=== PATIENT | male | born 1990 | race Caucasian/White ===

== ENCOUNTER 2022-04-15 00:22 | Observation (INO) ==
--- NOTE | 2022-04-15 00:48 | Emergency Department Note ---
Impression & Plan Rectal foreign body, Laceration of anus with foreign body ED Provider Note Name: CELY ARMANDO Age: 32 Sex: M Arrives Via: Walk-In Informant: Patient ED Provider: Antonio Mercado MD Chief Complaint: Foreign body in rectum Impression: As per impressions above Medical Decision Makin-year-old healthy male without significant past medical history arrives for evaluation after inserting an deodorant bottle of his rectum and then when he removed it the cap remained. The patient did sustain mild rectal laceration from this but is no longer bleeding on my evaluation. During digital rectal exam I am able to do just partially feel the edge of the cap high up in the r ectal vault. Discussed with gastroenterology who advised I discussed the case with general surgery. Discussed the case with Dr. White general surgery who plans to take patient to the OR for rectal foreign body removal. Triage/Nursing Notes reviewed by Me Differentials:Foreign body, laceration, obstruction, other pathologies considered Vital Signs: reviewed and remarkable for mildly hypertensive Interventions: Mefoxin 2 g IV Imaging:As per my interpretation: 1 view KUB moderate amount of air within the rectal vault no evidence of obstruction or opaque foreign body Consults:Dr Jameson of GI advised consulting Gen Surg Dr White of Gen Surg consulted and will take patient to the OR for management. Plan: Disposition:Transfer to operating room Condition: Good History of Present Illness:32-year-old gentleman arrives for evaluation of foreign body in rectum. Patient notes he had self inserted a deodorant bottle in his rectum about 30 minutes prior to arrival. When removing this he realized the cap had been dislodged. He attempted multiple times to get it out but started noticing some bleeding. Denies any other foreign bodies. Denies any metal. Denies history of bleeding issues. States this was not an assault. Past History:Denies past medical history. [employer] from [place] Home Medications:none Allergies:nkda Vitals:Blood Pressure: 162/100, Pulse 101, RR 18, T 36.6C, O2 95% on RA Physical Exam: GENERAL: Patient is anxious appearing and in minimal distress. EYES: No scleral icterus, unremarkable pupils. Abdominal: Soft nontender no peritonitis. RECTAL: Small mucosal tear posterior left rectum no active bleeding. Rectal exam scant amount of stool noted in rectal vault. Foreign body can be just partially palpated with tip of finger during digital rectal exam EXTREMITIES: Normal motion all extremities, no cyanosis, no edema. NEUROLOGIC: Alert and oriented, no focal neurologic deficit SKIN: No rash, no jaundice, no diaphoresis. PSYCH: Appropriate anxious GCS: 15 ED Course: Times/Reassessments: Patient anxious but stable Antonio Mercado MD Past Med/Surg History Medical History (Updated 04/15/22 @ 02:30 by Mikey Rosenberg MD) Encounter for pre-operative examination Rectal foreign body Social History Smoking Status: Never smoker Preferred Language: Stateless Feels Safe at Home: Yes Results & Data (ED) Vital Signs Vital Signs - 24 hr 04/15/22 00:25 04/15/22 02:09 Temperature 36.6 C Temperature Source Temporal Artery Scan Pulse Rate 101 H Pulse Rate [Finger] 80 Pulse Rhythm [Finger] Regular Pulse Strength [Finger] Normal Respiratory Rate 18 16 Respiratory Effort / Characteristics Non-Labored Non-Labored Respiratory Depth Normal Normal Respiratory Pattern Regular Blood Pressure 162/100 H Blood Pressure [Right Arm] 145/94 H Blood Pressure Mean 120 Blood Pressure Mean [Right Arm] 111 Pulse Oximetry 95 98 Oxygen Delivery Method Room Air Room Air Sepsis Recent Fever Within 48 Hours No Sepsis New/Unexplained Change in Mental Status N/A Sepsis Action Taken by Nursing No Action Required Laboratory Data 04/15/22 02:00 04/15/22 02:00 Lab Results 04/15/22 04/15/22 Range/Units 01:50 02:00 WBC 7.71 (4.8-10.8) K/ul RBC 4.88 (4.70-6.10) M/uL Hgb 13.8 L (14.0-18.0) g/dl Hct 40.6 L (42.0-52.0) % MCV 83.2 (80.0-100.0) fL MCH 28.3 (25.0-34.0) pg MCHC 34.0 (32.0-36.0) g/dL RDW Std Deviation 36.5 (36.4-46.3) fL RDW Coeff of Hermila 11.9 (11.5-14.5) % Plt Count 191 (130-400) K/uL MPV 12.4 (9.4-12.4) fL Immature Gran % (Auto) 0.3 % Neut % (Auto) 74.1 % Lymph % (Auto) 17.0 % [place] % (Auto) 6.9 % Eos % (Auto) 1.3 % Baso % (Auto) 0.4 % Neut # (Auto) 5.72 (1.40-6.50) K/uL Lymph # (Auto) 1.31 (1.2-3.4) K/uL [place] # (Auto) 0.53 (0.11-0.59) K/uL Eos # (Auto) 0.10 (0-0.50) K/uL Baso # (Auto) 0.03 (0-0.2) K/uL Immature Gran # (Auto) 0.02 (0.01-0.20) K/uL SARS-CoV-2, RNA, NAAT NEGATIVE (NEGATIVE) Discharge Plan Visit Data Chief Complaint: Foreign Body Stated Complaint: OBJECT STUCK IN RECTUM ED Provider: Antonio Mercado Discharge Problem: Rectal foreign body, Laceration of anus with foreign body Forms Stand Alone Forms: [facility] Referrals Referrals: PCP,NO [Primary Care Provider] - Laceration of anus with foreign body Qualifiers: Encounter type: initial encounter Qualified Code(s): S31.832A - Laceration with foreign body of anus, initial encounter
[2022-04-15] MEDS ORDERED: cefOXitin 2,000 MG/60 ML BAG IV STA (01:47)
--- NOTE | 2022-04-15 01:55 | History & Physical Report ---
Date of Service April 15, 2022 Assessment & Plan (1) Rectal foreign body: Plan: Patient with rectal foreign body which is the cap of a deodorant bottle I have discussed exam under anesthesia with the patient with removal of the cap It may be that I cannot remove the foreign body and there is a chance the patient would have to be transferred to a tertiary care center Encounter type: initial encounter Qualified Code(s): T18.5XXA - Foreign body in anus and rectum, initial encounter History of Present Illness Primary Care Provider: NO PCP 32-year-old male with a rectal foreign body Apparently placed a deodorant bottle into his anorectal area and when he pulled it out the cap came off The ER physician was unable to retrieve it using his digit but felt that it was just above his finger Past Med/Surg History Social History Smoking Status: Never smoker Preferred Language: Albanian Feels Safe at Home: Yes Review of Systems All systems reviewed & are unremarkable except as noted in HPI & below Physical Exam Constitutional: well developed; no acute distress Eyes: + anicteric sclerae Respiratory: normal respiratory effort; no respiratory distress Cardiovascular: Rate/Rhythm: regular rate Gastrointestinal (Abdomen): Inspection/Auscultation: abdomen not distended Musculoskeletal: Head/Neck/Chest: head atraumatic Skin: no rashes, warm and dry Neurologic: awake Psychiatric: Orientation: alert Results & Data ([facility]) Vital Signs (Past 12 Hours) Vital Signs Temp Pulse Resp BP Pulse Ox O2 Del Method 04/15/22 00:25 36.6 C 101 H 18 162/100 H 95 Room Air
[2022-04-15] MEDS ORDERED: ONDANSETRON INJ 2 MG/ML 2 ML VIAL ONE (02:14)
[2022-04-15] MEDS ORDERED: DEXAMETHASONE SOD INJ 4 MG/ML VIAL ONE ×2 (02:14→03:34)
[2022-04-15] MEDS ORDERED: PROPOFOL IV EMULSION 10 MG/ML 20 ML VIAL IV ONE (02:14)
[2022-04-15] MEDS ORDERED: SUCCINYLCHOLINE 100MG/5ML SYR IV ONE (02:14)
[2022-04-15] MEDS ORDERED: LIDOCAINE 2% MPF LOCAL 5 ML VIAL INFIL ONE (02:14)
[2022-04-15] MEDS ORDERED: fentaNYL citrate 100 MCG/2 ML VIAL ONE (02:15)
[2022-04-15] MEDS ORDERED: MIDAZOLAM HCL 1 MG/ML 2ML VIAL ONE (02:15)
[2022-04-15 02:28] LABS: Basophils # (auto) 0.03 K/uL (0-0.2); Basophils % (auto) 0.4 %; Eosinophils % (auto) 1.3 %; Hematocrit (blood only) 40.6 % (42.0-52.0); Hemoglobin 13.8 g/dl (14.0-18.0); Immature Granulocytes # (auto) 0.02 K/uL (0.01-0.20); Immature Granulocytes % (auto) 0.3 %; Lymphocytes # (auto) 1.31 K/uL (1.2-3.4); Mean Corpuscular Hemoglobin 28.3 pg (25.0-34.0); Mean Corpuscular Volume 83.2 fL (80.0-100.0); Mean Platelet Volume 12.4 fL (9.4-12.4); Monocytes # (auto) 0.53 K/uL (0.11-0.59); Monocytes % (auto) 6.9 %; Neutrophils # (auto) 5.72 K/uL (1.40-6.50); Neutrophils % (auto) 74.1 %; Platelet Count 191 K/uL (130-400); RDW Coefficient of Variation 11.9 % (11.5-14.5); RDW Standard Deviation 36.5 fL (36.4-46.3); Red Blood Count 4.88 M/uL (4.70-6.10); White Blood Count 7.71 K/ul (4.8-10.8)
[2022-04-15] MEDS ORDERED: BUPIVACAINE 0.5 % 5 MG/1 ML MPF 30ML VIAL ONE (02:30)
[2022-04-15] MEDS ORDERED: METHYLENE BLUE 0.5% 10 ML VIAL ONE (02:30)
--- NOTE | 2022-04-15 02:30 | Anesthesiology Consultation ---
Date of Service April 15, 2022 Assessment & Plan (1) Encounter for pre-operative examination: Chart Review Chart Review: Acceptable Risk for Surgery and Patient NOT seen in Pre Admission Testing Consults Requested none History Surgery Operation Date: 04/15/22 01:45 Proposed Procedures p Rectal Surgery - Romie White MD, FACS Height/Weight Height: 5 ft 11 in Weight: 90.3 kg Past Medical History Medical History (Updated 04/15/22 @ 02:30 by Mikey Rosenberg MD) Encounter for pre-operative examination Rectal foreign body Exercise / Class Metabolic Activity II 4-5 Yardwork/Stairs/Walk up hill Social History Smoking Status: Never smoker Physical Exam Vital Signs Last Vital Signs Temp 36.6 C 04/15/22 00:25 Pulse 80 04/15/22 02:09 Resp 16 04/15/22 02:09 BP 145/94 H 04/15/22 02:09 Pulse Ox 98 04/15/22 02:09 O2 Del Method Room Air 04/15/22 02:09 Testing Laboratory Results 04/15/22 02:00
[2022-04-15 02:34] LABS: BUN Creatinine Ratio 18.3 (10-20); Calcium 9.9 mg/dl (8.5-10.1); Creatinine Clr Calc Pharmacy 89.6 ml/min; Est GFR (African American) 86.9 ml/min; Potassium 3.5 mmol/L (3.5-5.1)
[2022-04-15] MEDS ORDERED: SCOPOLAMINE 1 MG TDSY TD ONE (02:45)
[2022-04-15] MEDS ORDERED: ACETAMINOPHEN 325 MG TAB PO PRN (03:55)
[2022-04-15] MEDS ORDERED: ONDANSETRON INJ 2 MG/ML 2 ML VIAL IV PRN ×2 (03:55→04:17)
--- NOTE | 2022-04-15 03:55 | Post Operative Brief Note ---
PG Immediate Post Op with CF Date of Surgery April 15, 2022 Pre & Post Diagnosis Operation Date: 04/15/22 01:45 Pre-Op Diagnosis: Rectal foreign body Post-Op Diagnosis: Rectal foreign body I identified the patient and participated in the time-out.: Yes Procedure Operation Date: 04/15/22 01:45 Actual Procedures p Removal of Rectal Foreign Body(Not Applicable) - Romie White MD, FACS Surgeon Romie White MD, FACS [employer] Science Research Assistant Nurses Estimated Blood Loss 3 Findings Consistent with Post-Op Diagnosis Apparently 3 cc Specimens Specimen Description: None per surgeon
[2022-04-15] MEDS ORDERED: ATROPINE SULFATE 0.1 MG/ML 10ML SYR IV PRN (04:17)
[2022-04-15] MEDS ORDERED: fentaNYL citrate 100 MCG/2 ML VIAL IV PRN (04:17)
[2022-04-15] MEDS ORDERED: PROMETHAZINE HCL 6.25 MG in SODIUM CHLORIDE 0.9% 50 ML IV PRN (04:17)
[2022-04-15] MEDS ORDERED: ePHEDrine sulfate 50 MG/ML AMP IV PRN (04:17)
--- NOTE | 2022-04-15 04:18 | Anesthesiology Progress Note ---
Date of Service April 15, 2022 Anesthesia Post Procedure Vital Signs Vital Signs: Temp Pulse Pulse Resp BP BP Pulse Ox 04/15/22 03:12 78 18 140/90 99 04/15/22 02:09 80 16 145/94 H 98 04/15/22 00:25 36.6 C 101 H 18 162/100 H 95 O2 Del Method 04/15/22 03:12 Room Air 04/15/22 02:09 Room Air 04/15/22 00:25 Room Air Pain Intensity Rectal: Pain Intensity: 4 Transfer of Care Handoff Completed per policy Notes Mental Status: alert / awake / arousable and participated in evaluation Patient Amnestic to Procedure: Yes Nausea / Vomiting: adequately controlled Pain: adequately controlled Airway Patency, RR, SpO2: stable & adequate BP & HR: stable & adequate Hydration State: stable & adequate Anesthetic Complications: no major complications apparent and Pt Satisfied with anesthetic care
--- NOTE | 2022-04-15 06:55 | Operative Report (OR) ---
DATE OF OPERATION: 04/15/2022. NAME OF OPERATION: Removal of rectal foreign body with proctoscopy. PREOPERATIVE DIAGNOSIS: Rectal foreign body. POSTOPERATIVE DIAGNOSIS: Rectal foreign body. STAFF SURGEON: Romie White MD ANESTHESIA: General. DESCRIPTION OF PROCEDURE: The patient was brought in to the operating room and placed on the operati ng table in the supine position. After appropriate anesthetic, he was placed in lithotomy position. His perineum was prepped and draped in the usual fashion with Betadine. Initially, I digitally palp ated the edge of the foreign body, which was a cap to a deodorant bottle. I was unable to grasp it w ithout using the proctoscope. I was then able to grasp it with a ring clamp. It was somewhat lodged up around the sacrum; however, I was able to gently remove the cap and then I performed some proctos copy again just to be sure. There was a small amount of erosion, but no significant injury. The najma ent tolerated the procedure well and transferred to recovery room in stable condition. Job ID: [id number]
--- NOTE | 2022-04-15 09:26 | XRay Report ---
XR KUB/Abdomen 1 view CLINICAL HISTORY: deodorant cap in rectum TECHNIQUE: 1 view of the abdomen was obtained. Comparison: None available at the time of this dictation. FINDINGS: No definite radiodensity is seen in the visualized abdomen and pelvis, in particular no radiodensity is seen in the area of the rectum. The osseous structures are grossly unremarkable. The bowel gas pat tern is nonobstructive. A moderate amount of stool is noted within the large bowel. IMPRESSION: No definite radiodensity is seen. The known foreign body may not be significantly radiodense. ACT 112: Negative or not required by law. Electronically signed by: Semaj Peña M.D. 04/15/2022 9:25 AM
--- NOTE | 2022-04-18 14:58 | Discharge Summary (DS) ---
DATE OF ADMISSION: 04/15/2022. DATE OF DISCHARGE: 04/15/2022. PRINCIPAL DIAGNOSIS: Rectal foreign body. HISTORY OF PRESENT ILLNESS: The patient is a 32-year-old male with a deodorant cap stuck in his rect um. The patient was taken to the operating room on 04/15/2022, where he underwent removal of a rectal for eign body, which was a deodorant cap. The patient tolerated well, was kept for observation and then d ischarged home. Job ID: [id number]
== END 2022-04-15 11:06 | disposition home or self-care (01) ==
LOC: ED 00:22 → 3N 02:48 → OR 02:48